=== PATIENT | male | born 1985 | race Caucasian/White ===

== ENCOUNTER 2022-09-28 16:40 | Emergency (ER) | payer BC, SELFPAY ==
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
[2022-09-28 16:40] VITALS: BP 129/72; PULSE 71; RESP 18; TEMP 36.8; O2SAT 98
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
[2022-09-28 18:40] VITALS: BP 121/69; PULSE 79; RESP 14; TEMP 36.6; O2SAT 97
[2022-09-28 20:00] VITALS: BP 122/74; PULSE 88; RESP 18; TEMP 36.7; O2SAT 99
== END 2022-09-28 20:03 | disposition home or self-care (01) ==
PROVIDERS: Emergency Provider Emergency Medicine
DX: S01.01XA Laceration without foreign body of scalp, initial encounter (principal); Y00.XXXA Assault by blunt object, initial encounter
CPT/HCPCS: 12001; 70450; 72125; 99284